=== PATIENT | female | born 1990 | race Caucasian/White ===

== ENCOUNTER 2016-08-07 18:52 | Emergency (ER) | payer BC ==
[~2016-08-07 18:52] MED LIST: ALEVE; CLARITIN-D 241 EACH PO; CLARITIN-D1 TAB.SR; CLEOCIN HCL300 M1 PO; FLONASE ALLERG9.9 ML; LEVAQUIN500 MG PO; LEVOTHROID75 MCG; NASONEX17 GM; OMNICEF300 MG; PREDNISONE20 MG PO; PRISTIQ ER50 MG PO; RHINOCORT AQUA8.6 GM NS; ROBINUL FORTE2 MG; ROBINUL FORTE2 MG PO; SYNTHROID112 MCG PO; VITAMIN D1000 UNIT PO; ZOLOFT100 MG PO
[2016-08-07] MEDS ORDERED: VENTOLIN HFA18 G2 PO (19:25)
[2016-08-07] MEDS ORDERED: CYMBALTA30 M1 PO (19:25)
[2016-08-07] MEDS ORDERED: SYNTHROID150 MC1 PO (19:25)
[2016-08-07] MEDS ORDERED: MECLIZINE HCL25 M3 PO (19:26)
[2016-08-07] MEDS ORDERED: IRON325 M3 PO (19:26)
[2016-08-07] MEDS ORDERED: ROBINUL1 M1 PO (19:26)
[2016-08-07] MEDS ORDERED: MULTIVITAMIN (19:27)
[2016-08-07] MEDS ORDERED: VITAMIN D250000 UNI1 PO (19:27)
[2016-08-07] MEDS ORDERED: PROBIOTIC1 EAC7 PO (19:27)
[2016-08-07] MEDS ORDERED: LEVOFLOXACIN500 M1 PO (19:28)
[2016-08-07 20:44] LABS: BASO % 0.2 % (0-2); EOS % 2.7 % (0-7); EOSINOPHIL ABSOLUTE COUNT 0.3 tho/cmm (0.0-0.7); HGB-HEMOGLOBIN 13.3 gm/dl (12.0-15.5); IMMATURE GRANULOCYTES ABSOLUTE 0.07 tho/cmm (0-0.03); IMMATURE GRANULOCYTES PERCENT 0.6 % (0-0.3); LYMPH % 17.4 % (20-45); LYMPH ABSOLUTE COUNT 2.2 tho/cmm (0.8-4.5); MCHC MEAN CORPUSCULAR HGB CONC 31.7 % (32.0-36.0); MCV (MEAN CELL VOLUME) 82.2 fl (82.0-96.0); MEAN PLATELET VOLUME 9.4 cmc (9.4-12.4); MONO % 5.8 % (0-12); MONOCYTE ABSOLUTE COUNT 0.7 tho/cmm (0.0-1.2); NEUTROPHIL ABSOLUTE COUNT 9.1 tho/cmm (1.6-8.0); NEUTROPHIL-AUTOMATED 9.1 tho/cmm (1.6-8.0); NEUTROPHILS % 73.3 % (40-80); PLATELET COUNT 395 tho/cmm (150-450); RED BLOOD COUNT 5.11 mil/cmm (4.00-5.20); RED CELL DISTRIBUTION WIDTH 16.3 % (12.4-16.4); WHITE BLOOD COUNT 12.4 tho/cmm (4.0-10.0)
[2016-08-07] MEDS ORDERED: CLEOCIN HCL300 M1 PO (21:20)
[2016-08-07] MEDS ORDERED: ALBUTEROL2.5 MG/3 M INH (21:20)
== END 2016-08-07 21:38 ==
LOC: EDMED 18:52
PROVIDERS: Family Medicine
DX: J32.9 Chronic sinusitis, unspecified (principal); J45.909 Unspecified asthma, uncomplicated; Z88.2 Allergy status to sulfonamides; Z79.51 Long term (current) use of inhaled steroids